=== PATIENT | female | born 1975 ===

== ENCOUNTER 2023-07-28 07:24 | Emergency (ER) | payer BC, OTHER, SELFPAY ==
[2023-07-28 07:31] VITALS: BP 139/83
--- NOTE | 2023-07-28 07:45 | ED.GENMED ---
History of Present Illness
General
Chief Complaint: Chest Pain
Source: patient
Exam Limitations: none
Time Seen by Provider: 07/28/23 07:31
Travel History
Have you had any contact with someone who has COVID-19?: No
Do you have any symptoms of coronavirus? Fever > 100 degrees, chills, cough, shortness of breath, sore throat, loss of taste or smell, muscle aches, or headache?: No
History of Present Illness
History of Present Illness:
48-year-old female with history of hypothyroidism has a Mirena IUD presents with intermittent chest pain starting last evening around 6 PM. Pressure in the center of her chest. Does not radiate. No neck back or arm pain. At times she feels
lightheaded. The pain has been intermittent since then. She noticed it more this morning at 6 AM which around making her coffee. No recent travel or surgery. No leg swelling or calf pain. Last menstrual cycle was about 12 days ago. She denies
abdominal pain nausea vomiting. No fevers. She does note a lingering cough from an illness she had about a month ago. She currently denies any chest pain or shortness of breath. No other complaints at this time
Phy Exam
Physical Exam
Physical Exam:
General: Well-appearing female no acute respiratory distress
HEENT: Normocephalic atraumatic
Heart: Regular rate and rhythm no murmurs
Lungs: Clear no wheezing or rales
Abdomen is soft nontender nondistended no guarding or rebound
Extremities: No cyanosis or edema or calf tenderness
Scores
Heart Score for Chest Pain Patients
STEMI patient?: No
History: Slightly or Non-Suspicious
ECG: Normal
Age: >45 - <65 years
Risk Factors: 1 or 2 Risk Factors
Troponin: </= Normal Limit
Heart Score for Chest Pain Patients: 2
Heart Score Risk: 2.5% MACE over next 6 weeks
Course
Orders/Labs/Results
Orders:
Orders
07/28/23 07:25
EKG [Electrocardiogram (*1)] Urgent
Reason for Study: Chest Pain
EKG- Treatment ONCE
07/28/23 07:44
Cardiac Monitoring- Treatment ONCE
07/28/23 07:59
Complete Blood Count/With Diff Urgent
Comprehensive Metabolic Panel Urgent
D-Dimer Urgent
Lipase Urgent
Troponin I Urgent
07/28/23 08:30
CT Chest Pe Study Urgent
Comment:
Reason For Exam: chest pain
Abnormal Lab Results
07/28/23
07:59
Abs Immat Gran (auto) 0.1 H 10^3/uL
(0-0.05)
Immature Gran % 1.1 H %
(0-0.5)
D-Dimer 0.52 H ug/mlFEU
(0.00-0.50)
Chloride 111 H mmol/L
(98-107)
07/28/23 07:59
07/28/23 07:59
Vital Signs
Initial and Last Documented VS:
Initial Vital Signs
Temp Pulse Resp BP Pulse Ox
98.4 F 75 16 139/83 100
07/28/23 07:31 07/28/23 07:31 07/28/23 07:31 07/28/23 07:31 07/28/23 07:31
Last Documented Vital Signs
Temp Pulse Resp BP Pulse Ox
98.4 F 61 15 112/59 96
07/28/23 07:31 07/28/23 10:30 07/28/23 10:30 07/28/23 10:00 07/28/23 10:30
MDM/Problems Addressed
Differential Diagnosis Includes:
Chest pain. Consider ACS versus PE versus musculoskeletal chest pain versus GERD.
EKG through triage shows normal sinus rhythm without ischemic changes
Will check labs including troponin lipase and D-dimer. Imaging pending D-dimer results. No acute distress currently
*Critical Care Note
Total Time (30-74mins, 75-104mins- exclusive of procedures): Not Applicable
Update Note
Update Note:
Workup here unremarkable. Troponin undetectable. Pain started yesterday. Would expect a bump in the troponin with acute coronary syndrome. D-dimer slightly elevated this prompted a CT of the chest. This was done to evaluate for PE. This was
negative for any acute finding. She notes an ongoing cough that is occasionally productive. Question possible underlying bronchitis. Labs otherwise are negative. Will prescribe a steroid and an inhaler. Advise follow-up with berna rabago.
ED Attending Note
-
Portions of this chart may have been created with voice recognition software.� Occasional wrong word or��sound alike� substitutions may have occurred due to the inherent limitations of voice recognition software.
Discharge Plan
Departure
Patient Disposition: Home (Routine Discharge)
Date of Disposition: 07/28/23
Time of Disposition: 10:44
Patient with high blood pressure during this ER visit?: No
Discharge Problem:
Chest pain
Instructions: Chest Pain DCA Follow Up
Prescriptions:
New
prednisone 20 mg tablet
40 mg PO DAILY 5 Days Qty: 10 0RF
albuterol sulfate [Ventolin HFA] 90 mcg/actuation HFA aerosol inhaler
1 inh inhalation Q6H PRN (Reason: shortness of breath or wheezing) Qty: 1 0RF
Referrals:
Elizabeth Lam, [Family Provider] -
Activity Restrictions/Additional Instructions:
Rest. Drink plenty fluids. Use inhaler as needed for cough. Use steroid as directed peer return if worse otherwise follow-up with family doctor and/or bail agent
Interventions
Interventions:
*Risk Screen - Suicide Last Done: 07/28/23 07:26
*General Assessment Last Done: 07/28/23 07:26
*Neglect/Abuse Screening Last Done: 07/28/23 07:26
ED- Cardiac Assessment Last Done: 07/28/23 08:09
Discharge Date and Time
Print Language: SAMMARINESE
[2023-07-28 08:07] LABS: % Basophils 1.7 % (0-2); % Eosinophils 3.2 % (0-6); % Immature Granulocytes 1.1 % (0-0.5); % Lymphocytes 30.2 % (20.5-51.1); % Monocytes 7.5 % (1.7-9.3); % Neutrophils 56.3 % (42.2-75.2); Absolute Basophils 0.1 10^3/uL (0-0.2); Absolute Eosinophils 0.2 10^3/uL (0-0.7); Absolute Immature Granulocytes 0.1 10^3/uL (0-0.05); Absolute Lymphocytes 2.2 10^3/uL (1.2-3.4); Absolute Monocytes 0.5 10^3/uL (0.1-0.6); Absolute Neutrophils 4.1 10^3/uL (1.4-6.5); Hematocrit 37.1 % (37.0-47.0); Hemoglobin 12.4 g/dL (12.0-16.0); Mean Corp Hgb Conc. 33.4 g/dL (33.0-37.0); Mean Corpuscular Hgb 29.4 pg (27.0-31.0); Mean Corpuscular Volume 87.9 fL (81.0-99.0); Mean Platelet Volume 10.4 fL (7.4-10.4); Nucleated Red Blood Cells % 0 %; Platelet Count 260 10^3/uL (130-400); Red Blood Cell Count 4.22 10^6/uL (4.20-5.40); Red Cell Dist. Width 12.3 % (11.5-14.5); White Blood Cell Count 7.2 10^3/uL (4.8-10.8)
[2023-07-28 08:18] LABS: D-Dimer 0.52 ug/mlFEU (0.00-0.50)
[2023-07-28 08:20] LABS: ALT (SGPT) 32 U/L (0-35); AST (SGOT) 24 U/L (14-36); Albumin 3.8 g/dl (3.5-5.0); Alkaline Phosphatase 50 U/L (38-126); Blood Urea Nitrogen 13 mg/dl (7-17); Carbon Dioxide 22 mmol/L (22-30); Chloride 111 mmol/L (98-107); Glucose 94 mg/dl (70-99); Lipase 217 U/L (23-300); Potassium 4.1 mmol/L (3.5-5.1); Sodium 138 mmol/L (135-145); Total Bilirubin 0.4 mg/dl (0.2-1.3); Total Protein 6.6 g/dl (6.3-8.2); eGFR > 60.00
[2023-07-28 08:22] VITALS: BP 111/67
[2023-07-28 08:31] LABS: Troponin I < 0.012 ng/ml
[2023-07-28 09:02] VITALS: BP 104/63
[2023-07-28 10:00] VITALS: BP 112/59
[2023-07-28 10:58] VITALS: BP 105/68
== END 2023-07-28 11:11 | disposition home or self-care (01) ==
LOC: EMR 07:24
PROVIDERS: Physician Assistant; EMERGENCY PHYSICIAN Emergency Medicine; FAMILY PHYSICIAN Family Medicine
DX: R07.89 Other chest pain (principal); R05.9 Cough, unspecified; R42 Dizziness and giddiness
CPT/HCPCS: 99285; 71275; 80053; 83690; 84484; 85025; 85379; 93005; Q9967

== ENCOUNTER 2025-02-11 13:56 | Emergency (ER) | payer BC, OTHER, SELFPAY ==
[2025-02-11 14:02] VITALS: BP 124/76
[2025-02-11 14:14] VITALS: BP 128/76
--- NOTE | 2025-02-11 14:30 | ED.GENMED ---
History of Present Illness
General
Chief Complaint: Chest Pain
Source: patient
Exam Limitations: none
Time Seen by Provider: 02/11/25 14:12
Nursing documentation reviewed up to this point in time: agreed with
History of Present Illness
History of Present Illness:
Patient to ED with complaint of left ant. chest pain. Pain started a few days ago, describes as electric shock initially. Pain is now more frequent,describes as aching. Denies any n/v/diaphoresis. No SOB, dizziness. States she has GERD and feels
like her Gerd symptoms have been more frequent, not responding to TUMs. To ED accompanied by mother. No complaints of calf pain, lower extremity swelling. No history of PE/DVT
Past History
Past History
ED Past Medical History: GERD and Hypothyroidism
ED Past Surgical History: Appendectomy
Review of Systems
Review of Systems
Allergies reviewed?: Yes
All Other Systems: ROS reviewed and negative except as documented in HPI and ROS
Constitutional: Reports no symptoms
EENT: Reports no symptoms
Respiratory: Reports no symptoms
Cardiac: Reports chest pain (left ant. chest pain)
ABD/GI: Reports other (refulx not responding to TUMs)
: Reports no symptoms
Musculoskeletal: Reports other (anterior left chest wall pain)
Skin: Reports no symptoms
Neurological: Reports no symptoms
Psychiatric: Reports no symptoms
Phy Exam
General Physical Exam
General Presentation: well appearing and no apparent distress
General age: appears stated age
General Skin: warm and dry
General Habitus: normal
General Mental: alert
Cardiovascular Exam
Cardiovascular Exam: regular rate/rhythm and no edema
Pulmonary Exam
Pulmonary Exam: lungs clear and no respiratory distress
Chest Wall: Left anterior: tenderness
Gastrointestinal Exam
Gastrointestinal Exam: non tender and soft
Neurological Exam
Neurological Exam: alert and oriented x3
Musculoskeletal Exam
Musculoskeletal Exam: neuro vasc intact
Skin Exam
Skin Exam: normal color, warm/dry and no rash
Psychiatric Exam
Psychiatric Exam: normal mood/affect
Scores
Heart Score for Chest Pain Patients
STEMI patient?: No
History: Slightly or Non-Suspicious
ECG: Normal
Age: >45 - <65 years
Risk Factors: No Risk Factors
Troponin: </= Normal Limit
Heart Score for Chest Pain Patients: 1
Heart Score Risk: 2.5% MACE over next 6 weeks
Course
Orders/Labs/Results
Orders:
Orders
02/11/25 13:57
Electrocardiogram (*1) Urgent
Reason for Study: Chest Pain
EKG- Treatment ONCE
02/11/25 14:24
Mag Hydrox/Al Hydrox/Simeth [Maalox] 30 ml Phenobarb/Hyoscy/Atropine/Scop [] 10 ml Viscous Lidocaine 2% [Xylocaine Viscous Cup] 10 ml PO NOW
02/11/25 14:29
CR Chest - 2 Views Urgent
Comment:
Reason For Exam: pain
02/11/25 14:30
Mag Hydrox/Al Hydrox/Simeth [Maalox] 30 ml .ROUTE .STK-MED ONE
Phenobarb/Hyoscy/Atropine/Scop [] 10 ml .ROUTE .STK-MED ONE
Viscous Lidocaine 2% [Xylocaine Viscous Cup] 15 ml .ROUTE .STK-MED ONE
02/11/25 14:38
Complete Blood Count/With Diff Urgent
Comprehensive Metabolic Panel Urgent
Lipase Urgent
Troponin I Urgent
Abnormal Lab Results
02/11/25
14:38
MPV 10.8 H fL
(7.4-10.4)
Abs Immat Gran (auto) 0.1 H 10^3/uL
(0-0.05)
Absolute Neuts (auto) 7.0 H 10^3/uL
(1.4-6.5)
Absolute Monos (auto) 0.7 H 10^3/uL
(0.1-0.6)
Immature Gran % 0.7 H %
(0-0.5)
02/11/25 14:38
02/11/25 14:38
Vital Signs
Initial and Last Documented VS:
Initial Vital Signs
Temp Pulse Resp BP Pulse Ox
97.7 F 72 18 124/76 97
02/11/25 14:02 02/11/25 14:02 02/11/25 14:02 02/11/25 14:02 02/11/25 14:02
Last Documented Vital Signs
Temp Pulse Resp BP Pulse Ox
97.7 F 69 19 122/68 95
02/11/25 14:02 02/11/25 15:45 02/11/25 15:45 02/11/25 15:41 02/11/25 15:45
*Radiology
Radiology exam reviewed: radiology read reviewed
*Pulse Oximetry
SaO2: 99
Oxygen Mode of Delivery: Room air
Patient hypoxic: no
*Critical Care Note
Total Time (30-74mins, 75-104mins- exclusive of procedures): Not Applicable
Update Note
Update Note:
Patient to the emergency department with left anterior chest pain. Pain started a few days ago and she describes the pain at that time as electric shock. Pain now has become more frequent and she describes it as dull nonradiating. No associated
shortness of breath, nausea vomiting or diaphoresis. VSS. She remains afebrile. Labs reviewed no concerning findings. Troponin negative. EKG normal sinus rhythm. Chest x-ray report reviewed, NAD. Doubtful for ACS. given green grabber while
in the emergency department and she reports some improvement. Will trial course of pantoprazole daily for 14 days. She is discharged home with her family and will follow-up in the a.m. with her family doctor. She was given instructions on signs
and symptoms to return to the emergency department and she is agreeable to the plan.
ED Attending Note
-
Portions of this chart may have been created with voice recognition software.� Occasional wrong word or��sound alike� substitutions may have occurred due to the inherent limitations of voice recognition software.
Discharge Plan
Departure
Patient Disposition: Home (Routine Discharge)
Date of Disposition: 02/11/25
Time of Disposition: 16:03
Patient with high blood pressure during this ER visit?: No
Condition: Good
Covid-19: Not Applicable
Discharge Problem:
Chest pain
Instructions: Acid reflux and GERD in adults, Chest Pain PCP Follow Up
Prescriptions:
New
pantoprazole 40 mg tablet,delayed release (DR/EC)
40 mg PO DAILY Qty: 14 0RF
No Action
prednisone 20 mg tablet
40 mg PO DAILY 5 Days Qty: 10 0RF
albuterol sulfate [Ventolin HFA] 90 mcg/actuation HFA aerosol inhaler
1 inh inhalation Q6H PRN (Reason: shortness of breath or wheezing) Qty: 1 0RF
Referrals:
Blair Gill MD [Family Provider, Family Practice] - Tomorrow
Activity Restrictions/Additional Instructions:
Return to the emergency department for any changes in or worsening of your symptoms
Interventions
Interventions:
*Risk Screen - Suicide Last Done: 02/11/25 14:50
*General Assessment Last Done: 02/11/25 14:50
*Neglect/Abuse Screening Last Done: 02/11/25 14:50
*ED- Fall Risk Assessment Last Done: 02/11/25 14:50
*ED COVID-19 Vaccine History Last Done: 02/11/25 14:50
*ED Influenza Vaccine History Last Done: 02/11/25 14:50
ED- Cardiac Assessment Last Done: 02/11/25 14:50
Discharge Date and Time
Print Language: NEPALI
[2025-02-11] MEDS: MAALOX 50 PO (14:40)
[2025-02-11 15:00] VITALS: BP 116/73
[2025-02-11 15:02] LABS: Hematocrit 40.2 % (37.0-47.0); Hemoglobin 13.3 g/dL (12.0-16.0); Mean Corp Hgb Conc. 33.1 g/dL (33.0-37.0); Mean Corpuscular Volume 87.8 fL (81.0-99.0); Nucleated Red Blood Cells % 0 %; Platelet Count 311 10^3/uL (130-400); Red Cell Dist. Width 12.2 % (11.5-14.5)
[2025-02-11 15:25] LABS: ALT (SGPT) 26 U/L (0-35); AST (SGOT) 19 U/L (14-36); Albumin 4.4 g/dl (3.5-5.0); Alkaline Phosphatase 70 U/L (38-126); Blood Urea Nitrogen 15 mg/dl (7-17); Calcium 9.4 mg/dl (8.4-10.2); Carbon Dioxide 23 mmol/L (22-30); Chloride 107 mmol/L (98-107); Glucose 92 mg/dl (70-99); Lipase 70 U/L (23-300); Potassium 4.3 mmol/L (3.5-5.1); Sodium 138 mmol/L (135-145); Total Protein 7.5 g/dl (6.3-8.2); eGFR > 60.00
[2025-02-11 15:28] LABS: Troponin I < 0.012 ng/ml
[2025-02-11 15:41] VITALS: BP 122/68
[2025-02-11 16:00] VITALS: BP 121/54
== END 2025-02-11 16:15 | disposition home or self-care (01) ==
LOC: EMR 13:56
PROVIDERS: Nurse Practitioner; EMERGENCY PHYSICIAN Emergency Medicine; FAMILY PHYSICIAN Student in an Organized Health Care Education/Training Program
DX: R07.9 Chest pain, unspecified (principal); E03.9 Hypothyroidism, unspecified; K21.9 Gastro-esophageal reflux disease without esophagitis
CPT/HCPCS: 99284; 71046; 80053; 83690; 84484; 85025; 93005